=== PATIENT | female | born 1985 | race Caucasian/White ===

== ENCOUNTER 2017-10-16 07:39 | Inpatient (IN) | payer BC ==
[~2017-10-16] VITALS: Ht 167.6 cm; Wt 78.6 kg
[2017-10-16] VITALS (17 sets, daily range): BP systolic 120–146; BP diastolic 62–87
[~2017-10-16 07:39] MED LIST: IBUPROFEN800 MG PO; MOTRIN800 MG PO; PERCOCET 5/31 TABLET PO
[2017-10-16 09:11] LABS: BASOPHIL (%) 0.5 % (0-1); EOSINOPHIL (%) 0.7 % (0-5); EOSINOPHIL COUNT 0.1 K/uL (0-0.3); HEMATOCRIT 31.5 % (36.0-46.0); HEMOGLOBIN 10.7 G/DL (11.9-15.5); IMMATURE GRANULOCYTE (%) 0.5 % (0.0-0.7); LYMPHOCYTE (%) 15.6 % (15-42); LYMPHOCYTE COUNT 1.2 K/uL (1.0-2.8); MCV 85.4 FL (83-99); MONOCYTE (%) 10.2 % (3-12); MONOCYTE COUNT 0.8 K/uL (0-0.8); NEUTROPHIL (%) 72.5 % (45-76); NEUTROPHIL COUNT 5.5 K/uL (1.8-6.4); PLATELET COUNT 189 K/uL (156-360); RBC DIS.WIDTH-CV 12.5 % (11.8-14.6); RBC DIS.WIDTH-SD 38.6 % (39-53); RED BLOOD COUNT 3.69 M/uL (3.80-5.20); WHITE BLOOD COUNT 7.6 K/uL (4.1-10.2)
[2017-10-16 09:36] LABS: AMPHETAMINE NEGATIVE (500 ng/mL); BARBITURATES NEGATIVE (200 ng/mL); BENZODIAZEPINES NEGATIVE (150 ng/mL); BUPRENORPHINE NEGATIVE (10 ng/mL); COCAINE NEGATIVE (150 ng/mL); METHADONE NEGATIVE (200 ng/mL); METHAMPHETAMINE NEGATIVE (500 ng/mL); OPIATES (MORPHINE) NEGATIVE (100 ng/mL); OXYCODONE NEGATIVE (100 ng/mL); PHENCYCLIDINE NEGATIVE (25 ng/mL); PROPOXYPHENE NEGATIVE (300 ng/mL); THC CANNABINOIDS NEGATIVE (50 ng/mL); TRICYCLIC ANTIDEPRESSANTS NEGATIVE (300 ng/mL)
[2017-10-16] MEDS ORDERED: IBUPROFEN800 MG PO (17:05)
== END 2017-10-18 11:13 | disposition home or self-care (01) | DRG 775 ==
LOC: LDRP-OP 07:39 → 2WEST 07:40 → LDRP-OP 23:33 → 2WEST 10-18 11:13 → LDRP-OP 12-04 18:32
PROVIDERS: Nurse Practitioner
PROC: 10E0XZZ Delivery of Products of Conception, External Approach (ICD-10-PCS; principal; 2017-10-16)
PROC: 3E0P7VZ Introduction of Hormone into Female Reproductive, Via Natural or Artificial Opening (ICD-10-PCS; 2017-10-16)
PROC: 10907ZC Drainage of Amniotic Fluid, Therapeutic from Products of Conception, Via Natural or Artificial Opening (ICD-10-PCS; 2017-10-16)
DX: O36.5931 Maternal care for other known or suspected poor fetal growth, third trimester, fetus 1 (principal); O60.14X1 Preterm labor third trimester with preterm delivery third trimester, fetus 1; O33.0 Maternal care for disproportion due to deformity of maternal pelvic bones; Z37.0 Single live birth; Z3A.37 37 weeks gestation of pregnancy; M41.9 Scoliosis, unspecified
CPT/HCPCS: 85025; 88307; C1755; J7120